=== PATIENT | female | born 1960 | race Two or more races ===

== ENCOUNTER → 2019-01-24 | Emergency (ER) | payer OTHER ==
[~2019-01-24] VITALS: Ht 160 cm; Wt 81.6 kg
== END | disposition left against medical advice (07) ==
LOC: ER 01:51
DX: Z53.20 Procedure and treatment not carried out because of patient's decision for unspecified reasons (principal)

== ENCOUNTER → 2020-09-23 | Emergency (ER) | payer OTHER ==
[~2020-09-23] VITALS: Ht 162.6 cm; Wt 61.2 kg
== END | disposition left against medical advice (07) ==
LOC: ER 22:20
DX: R55 Syncope and collapse (principal); F10.129 Alcohol abuse with intoxication, unspecified